=== PATIENT | male | born 1945 | race Caucasian/White ===

== ENCOUNTER 2018-11-06 07:31 | Outpatient (CLI) | payer MEDICARE, BC ==
[2018-11-06] MEDS ORDERED: REGADENOSON 0.4 MG/5 ML DISP.SYRIN IVP ONE (08:00)
== END 2018-11-06 23:59 | disposition home or self-care (01) ==
LOC: NM 07:31
PROVIDERS: ATTEND Internal Medicine Interventional Cardiology
DX: I10 Essential (primary) hypertension (principal); R07.9 Chest pain, unspecified; I71.4 Abdominal aortic aneurysm, without rupture
CPT/HCPCS: 76700; 78452; A9502; J2785